=== PATIENT | male | born 1990 | race Caucasian/White ===

== ENCOUNTER 2023-07-20 14:21 | Outpatient (AMB) | payer BC, SELFPAY ==
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
[2023-07-20 14:33] VITALS: BP 124/68; PULSE 75; O2SAT 98; BMI 28.4
== END 2023-07-20 15:01 | disposition home or self-care (01) ==
PROVIDERS: PCP Nurse Practitioner Family; Visit Provider Nurse Practitioner Family
DX: Z00.00 Encounter for general adult medical examination without abnormal findings (principal); B35.6 Tinea cruris
CPT/HCPCS: 99385